=== PATIENT | female | born 1970 | race Caucasian/White ===

== ENCOUNTER 2016-11-24 11:39 | Emergency (ER) | payer OTHER ==
[~2016-11-24] VITALS: Ht 162.6 cm; Wt 69.9 kg
--- NOTE | 2016-11-24 12:10 | ED HEADACHE COMPLAINT ---
History of Present Illness General Chief Complaint: General Adult Stated Complaint: "STABBING" HEADACHE,SYNCOPAL EPISODE LAST PM Source: patient Exam Limitations: no limitations Vital Signs & Intake/Output Vital Signs & Intake/Output Vital Signs Date Time Temp Pulse Resp B/P Pulse O2 O2 Flow FiO2 Ox Delivery Rate 11/24 1417 97.7 80 16 198/108 11/24 1412 99 11/24 1402 80 16 198/108 100 Room Air 11/24 1330 160/94 11/24 1328 81 20 160/104 100 Room Air 11/24 1146 97.7 94 16 178/97 98 Room Air Allergies Coded Allergies: Penicillins (ANAPHYLAXIS 11/24/16) Sulfa (Sulfonamide Antibiotics) (HIVES 11/24/16) amoxicillin (ANAPHYLAXIS 11/24/16) povidone-iodine (From BETADINE) (LIMB SWELLING 11/24/16) soap (From BETADINE) (LIMB SWELLING 11/24/16) tetracycline (HIVES 11/24/16) Uncoded Allergies: PLASTIC TAPE (LIMB SWELLING 11/24/16) Reconcile Medications Amlodipine Besylate (Norvasc) 10 MG TABLET 1 TAB PO DAILY HTN Triage Note: PT REPORTS HAVING A STABBING HEADACHE FOR THE LAST WEEK AND HALF. PT STATES SHE HAS ALSO BEEN PASSING OUT AND THE LEFT SIDE OF HER FACE HAS BEEN NUMB AND TINGLING. PT STATES LAST NIGHT WHEN SHE PASSED OUT IT TOOK OVER A MINUTE FOR HER TO COME TO. Triage Nurses Notes Reviewed? yes Onset: Gradual Duration: day(s): (10) Timing: recent history Quality/Severity: severe, sharp Severity Numbers: 10 Head Injury Location: left facial No Modifying Factors: none Associated Symptoms: HEADACHE, SYNCOPE HPI: This is a 46 year old female who presents to the ER with on/off headaches for the past 10 days. She states the headache starts on the left side of her face and then radiates to the top of her head. She has experienced syncopal episodes with the headaches. No blurred vision. Some associated left sided numbness and tigling. Past History Travel History Traveled to [place] past 21 day No Medical History Any Pertinent Medical History? see below for history Cardiovascular: hypertension Surgical History Surgical History: non-contributory Psychosocial History What is your primary language Macedonian Tobacco Use: Never used ETOH Use: denies use Illicit Drug Use: denies illicit drug use Family History Hx Contributory? No Review of Systems Review of Systems Constitutional: Denies: chills, fever. Eyes: Denies: blurred vision. Ears, Nose, Throat, Mouth: Reports: no symptoms. Respiratory: Denies: cough, short of breath. Cardiovascular: Denies: chest pain, palpitations. Gastrointestinal/Abdominal: Denies: abdominal pain. Genitourinary: Reports: no symptoms. Musculoskeletal: Reports: no symptoms. Skin: Reports: no symptoms. Neurological/Psychological: Reports: numbness, tingling. Hematologic/Endocrine: Denies: bruising, bleeding, polyuria, polydipsia. Endocrine: Reports: no symptoms. Immunologic/Allergic: Denies: splenectomy. All Other Systems: Reviewed and Negative Physical Exam Physical Exam General Appearance: well developed/nourished, alert, awake, anxious Head: atraumatic, normal appearance Eyes: Bilateral: normal appearance, PERRL, EOMI. Ears, Nose, Throat: normal pharynx, normal ENT inspection Neck: normal inspection, supple, full range of motion Respiratory: normal breath sounds, chest non-tender, no respiratory distress Cardiovascular: regular rate/rhythm Gastrointestinal: soft, non-tender Back: normal inspection Extremities: normal inspection, normal capillary refill, normal range of motion, no edema Psychiatric: alert Cranial Nerves: normal hearing, normal speech, PERRL Coordination/Gait: normal finger to nose, normal gait Skin: intact, normal color, warm/dry Core Measures Severe Sepsis Present: No Septic Shock Present: No Progress Differential Diagnosis: carotid dissection, IC mass/tumor, intracranial Hem., migraine MATHEWS, musculoskeletal pain, tension MATHEWS Plan of Care: Orders Procedure Date/time Status RT ED ORDERS 11/24 1400 Active Add-on Test (ER Only) 11/24 1354 Active TROPONIN LEVEL 11/24 1239 Complete Add-on Test (ER Only) 11/24 1232 Active THYROID STIMULATING HORMONE 11/24 1209 Complete FREE T4 11/24 1209 Complete COMPREHENSIVE METABOLIC PANEL 11/24 1209 Complete CBC WITHOUT DIFFERENTIAL 11/24 1209 Complete EKG 11/24 1148 Active Laboratory Tests 11/24/16 1239: Anion Gap 11, Estimated GFR > 60, BUN/Creatinine Ratio 13.3, Glucose 87, Calcium 9.0, Total Bilirubin 0.8, AST 28, ALT 40, Alkaline Phosphatase 66, Troponin I < 0.01, Total Protein 7.4, Albumin 4.2, Globulin 3.2, Albumin/Globulin Ratio 1.3, TSH 1.580, Free T4 1.06, CBC w Diff NO MAN DIFF REQ, RBC 4.97, MCV 89.8, MCH 30.4, RDW 13.8, MPV 8.3, Gran % 76.5 H, Lymphocytes % 15.1 L, Monocytes % 6.6, Eosinophils % 1.3, Basophils % 0.5, Absolute Granulocytes 6.3, Absolute Lymphocytes 1.2, Absolute Monocytes 0.5, Absolute Eosinophils 0.1, Absolute Basophils 0, PUBS MCHC 33.9 Diagnostic Imaging: Viewed by Me: CT Scan. Discussed w/RAD: CT Scan. Radiology Impression: EXAM TYPE: CAT - CT HEAD ANGIOGRAM EXAMINATION: CT ANGIOGRAM HEAD CLINICAL INFORMATION: Headaches with multiple episodes of syncope. COMPARISON: None available. TECHNIQUE: Test bolus sequences followed by intravenous administration 95 mL of Optiray 320 intravenous contrast. Helical imaging was performed in the axial plane from the skull base to the skull vertex. Delayed postcontrast imaging of the head was also performed. The data was processed at the automation technologist's workstation for generation of MIP sequences. Three-dimensional volume rendered reformatted images were also generated at an offline 3-D workstation. FINDINGS: The anterior and posterior intracranial arterial circulations are normal in caliber with no significant arterial stenoses and no acute arterial occlusions. No aneurysms. The superficial and deep venous systems remain widely patent. There is no pathologic intracranial enhancement. There is no intracranial hydrocephalus, extra-axial surface collection, midline shift, or other herniation pattern. No definite acute intracranial hemorrhage with significantly limited assessment for extra- axial blood products along the periphery of the brain parenchyma on the noncontrast acquisition secondary to dental streak artifact from the thoracic bony calvarium. No extra-axial blood products are identified on the postcontrast series. Concepcion to white matter differentiation is diffusely maintained without evidence of an evolved acute territorial infarct. The basilar cisterns are preserved. No significant soft tissue abnormality. No acute osseous abnormality. The paranasal sinuses and the mastoid air cells are well-aerated. IMPRESSION: Unremarkable CTA of the head. No aneurysms. Departure Departure Time of Disposition: 1456 Disposition: HOME OR SELF CARE Condition: Stable Clinical Impression Primary Impression: Migraine Secondary Impressions: Syncope and collapse Referrals: PATIENT HAS NO PRIMARY CARE DR (PCP/Family) Lashon KAHN APRNYO Referred to [facility] as new patient No Additional Instructions: Follow-up with the neurologist and with her primary care doctor listed. Please take the Norvasc as directed for your blood pressure and check her blood pressure twice a day. No physical strenuous activity until you're cleared by her doctor to do so. Return to the ER for any changing or worsening symptoms. Departure Forms: Customer Survey General Discharge Information Prescriptions: Current Visit Scripts Amlodipine Besylate (Norvasc) 1 TAB PO DAILY #14 TAB ED Attending Observation Initial Observation Note: I have seen and personally examined ANTONETTE CHRISTINE on 12/02/16 at 2144. I agree with the current emergency department documentation. The disposition (admission or discharge) is uncertain at this time, she needs a period of observation for the following reason(s): The ED Nurse caring for this patient has been personally informed as to what the patient is being observed for.
[2016-11-24 12:59] LABS: ABSOLUTE BASOPHIL COUNT 0 /CUMM (0.0-0.2); ABSOLUTE EOSINOPHIL COUNT 0.1 /CUMM (0.0-0.7); ABSOLUTE GRANULOCYTE CT 6.3 /CUMM (1.4-6.5); ABSOLUTE LYMPH COUNT 1.2 /CUMM (1.2-3.4); ABSOLUTE MONOCYTE COUNT 0.5 /CUMM (0.10-0.60); BASOPHIL % 0.5 % (0.0-2.0); EOSINOPHIL % 1.3 % (0-5); GRANULOCYTE % 76.5 % (42.2-75.2); HEMATOCRIT 44.6 % (37-47); MEAN CORPUSCULAR HGB 30.4 PG (27.0-31.0); MEAN CORPUSCULAR HGB CONC 33.9 G/DL (33.0-37.0); MEAN CORPUSCULAR VOLUME 89.8 FL (81.0-99.0); MEAN PLATELET VOLUME 8.3 FL (7.4-10.4); PLATELET COUNT 279 /CUMM (130-400); RBC DISTRIBUTION WIDTH 13.8 % (11.5-14.5); RED BLOOD CELL CT 4.97 /CUMM (4.20-5.40); WHITE BLOOD CELL COUNT 8.2 /CUMM (4.8-10.8)
--- NOTE | 2016-11-24 14:44 | CT SCAN REPORT ---
EXAMINATION: CT ANGIOGRAM HEAD CLINICAL INFORMATION: Headaches with multiple episodes of syncope. COMPARISON: None available. TECHNIQUE: Test bolus sequences followed by intravenous administration 95 mL of Optiray 320 intravenous contrast. Helical imaging was performed in the axial plane from the skull base to the skull vertex. Delayed postcontrast imaging of the head was also performed. The data was processed at the rad technologist's workstation for generation of MIP sequences. Three-dimensional volume rendered reformatted images were also generated at an offline 3-D workstation. FINDINGS: The anterior and posterior intracranial arterial circulations are normal in caliber with no significant arterial stenoses and no acute arterial occlusions. No aneurysms. The superficial and deep venous systems remain widely patent. There is no pathologic intracranial enhancement. There is no intracranial hydrocephalus, extra-axial surface collection, midline shift, or other herniation pattern. No definite acute intracranial hemorrhage with significantly limited assessment for extra-axial blood products along the periphery of the brain parenchyma on the noncontrast acquisition secondary to dental streak artifact from the thoracic bony calvarium. No extra-axial blood products are identified on the postcontrast series. Concepcion to white matter differentiation is diffusely maintained without evidence of an evolved acute territorial infarct. The basilar cisterns are preserved. No significant soft tissue abnormality. No acute osseous abnormality. The paranasal sinuses and the mastoid air cells are well-aerated. IMPRESSION: Unremarkable CTA of the head. No aneurysms.
[2016-11-24 14:59] VITALS: BP 160/90
[2016-11-24] MEDS ORDERED: NORVASC10 M1 PO (15:00)
== END 2016-11-24 15:06 ==
LOC: ERH 11:39
PROVIDERS: Emergency Medicine
DX: G43.909 Migraine, unspecified, not intractable, without status migrainosus (principal); R55 Syncope and collapse
CPT/HCPCS: 1263; 93005; 93010; 96374; 96375; J1200